=== PATIENT | female | born 1965 | race Hispanic/Latino ===

== ENCOUNTER 2022-11-17 02:18 | Observation (INO) | payer SELFPAY ==
[2022-11-17 02:50] LABS: #Eosinphils 0.1 thou/uL (0.0-0.7); #Monocytes 0.3 thou/uL (0.11-0.59); #Neutrophils 3.8 thou/uL (1.40-6.50); %Basophils 0.5 % (0.0-1.0); %Eosinophils 1.7 % (0.0-10.0); %Lymphocytes 28.9 % (21.0-51.0); %Monocytes 5.5 % (0.0-10.0); %Neutrophils 63.1 % (42.0-75.0); Hemoglobin 13.9 g/dL (12.0-16.0); Mean Corpuscular HGB CONC 34.9 g/dL (32.0-36.0); Mean Corpuscular Hemoglobin 30.8 pg (27.0-31.0); Mean Corpuscular Volume 88.2 fl (78.0-98.0); Platelet Count 177 10x3/uL (130-400); RBC Distribution Width 12.6 % (11.5-14.5); Red Blood Cell (RBC) Count 4.51 mill/uL (4.20-5.40); White Blood Cell (WBC) Count 6.1 10x3/uL (4.8-10.8)
[2022-11-17] MEDS ORDERED: Ondansetron ODT 4 MG TAB ONE (02:56)
[2022-11-17] MEDS ORDERED: Nitroglycerin 0.4 MG TAB 1 EACH ONE (02:56)
[2022-11-17] MEDS ORDERED: Aspirin Chewable 81 MG TAB ONE (02:56)
[2022-11-17 03:19] LABS: ALT (SGPT) 20 U/L (8-55); AST (SGOT) 17 U/L (5-34); Albumin 4.3 g/dL (3.5-5.0); Alkaline Phosphatase 131 U/L (40-110); Anion Gap 17 mmol/L (10-20); BUN (Urea Nitrogen) 16 mg/dL (9.8-20.1); Bilirubin, Total 0.4 mg/dL (0.2-1.2); Calc. Creatinine Clearance 0 mL/min (70-130); Calcium 9.9 mg/dL (7.8-10.44); Carbon Dioxide 20 mmol/L (22-29); Chloride 98 mmol/L (98-107); Estimated GFR 86; Globulin 3.2 g/dL (2.4-3.5); Glucose 355 mg/dL (70-105); Lipase 41 U/L (8-78); Potassium 3.7 mmol/L (3.5-5.1); Protein, Total 7.5 g/dL (6.0-8.3); Sodium 131 mmol/L (136-145)
[2022-11-17] MEDS ORDERED: Mag-Al 1200 mg/1200 mg/30 ML UDCUP ONE (03:31)
[2022-11-17] MEDS ORDERED: Acetaminophen 650 MG Suppository PR PRN (07:23)
[2022-11-17] MEDS ORDERED: Senokot S 8.6-50 MG TAB PO PRN (07:23)
[2022-11-17] MEDS ORDERED: Acetaminophen 325 MG TAB PO PRN (07:23)
[2022-11-17] MEDS ORDERED: Ondansetron ODT 4 MG TAB PO PRN (07:23)
[2022-11-17] MEDS ORDERED: Nitroglycerin 0.4 MG TAB (25 Tab Bottle) SL PRN (07:23)
[2022-11-17] MEDS ORDERED: Bisacodyl 5 MG TAB PO PRN (07:23)
[2022-11-17] MEDS ORDERED: Glucagon 1 MG/ML KIT IM PRN (07:26)
[2022-11-17] MEDS ORDERED: Dextrose 5% in Water 1,000 ML IV PRN (07:26)
[2022-11-17] MEDS ORDERED: Dextrose 50% Abboject 50 ML SYRINGE SLOW IVP PRN (07:26)
[2022-11-17] MEDS ORDERED: HumaLOG 300 UNITS/3 ML VIAL SC PRN ×2 (07:26)
[2022-11-17 07:45] LABS: Hemoglobin A1c 11.4 % (4.0-6.0)
[2022-11-17 08:03] LABS: Troponin I 0.012 ng/mL (< 0.028)
[2022-11-17] MEDS ORDERED: Nicotine 14 MG PATCH TD SCH (09:00)
[2022-11-17] MEDS ORDERED: Famotidine 20 MG TAB PO SCH (09:00)
[2022-11-17] MEDS ORDERED: Famotidine 20 MG TAB ONE ×2 (09:20→09:24)
[2022-11-17] MEDS ORDERED: Nicotine 14 MG PATCH ONE (09:24)
[2022-11-17] MEDS ORDERED: ADENOSINE 60 MG/20 ML SDV ONE (10:01)
[2022-11-17 13:45] VITALS: BMI 24.5
[2022-11-17 14:48] LABS: Troponin I Less than 0.010 ng/mL (< 0.028)
[2022-11-17 17:44] VITALS: BP 142/71; TEMP 98.3
[2022-11-17] MEDS ORDERED: Atorvastatin Calcium 40 MG TAB PO SCH (21:00)
[2022-11-18] MEDS ORDERED: Aspirin Chewable 81 MG TAB PO SCH (09:00)
== END 2022-11-17 18:30 | disposition home or self-care (01) ==
LOC: ERS 02:18 → SUATTDRO 02:18 → ERHOLD 08:10
PROVIDERS: ADMIT Family Medicine; ATTEND Family Medicine
DX: R07.89 Other chest pain (principal); I25.10 Atherosclerotic heart disease of native coronary artery without angina pectoris; E11.9 Type 2 diabetes mellitus without complications; I10 Essential (primary) hypertension; F17.210 Nicotine dependence, cigarettes, uncomplicated; Z95.5 Presence of coronary angioplasty implant and graft; Z79.82 Long term (current) use of aspirin; Z79.84 Long term (current) use of oral hypoglycemic drugs; Z79.899 Other long term (current) drug therapy
CPT/HCPCS: 36415; 36416; 71045; 78452; 80053; 83036; 83690; 83880; 84484; 85025; 93005; 93017; 96372; A9500; G0378; J0153; J1650; Q0162